=== PATIENT | female | born 1980 | race Caucasian/White ===

== ENCOUNTER → 2018-05-09 13:39 | Outpatient (REF) | payer SELFPAY | LOC: OM 13:39 | PROVIDERS: PCP Family Medicine; Visit Provider Nurse Practitioner Family | DX: Z02.1 Encounter for pre-employment examination (principal) ==

== ENCOUNTER 2022-05-10 11:07 | Emergency (ER) | payer SELFPAY ==
[2022-05-10 11:13] VITALS: BP 142/86; PULSE 83; RESP 16; TEMP 37.1; O2SAT 99
--- NOTE | 2022-05-10 12:00 | DI.RAD_ITS ---
Exam(s) XR CHEST 2V PA LATERAL EXAM: XR CHEST 2V PA LATERAL CLINICAL HISTORY: Fall, Anterior pain TECHNIQUE: 2D digital imaging was performed of the chest. Two images were obtained. PA and lateral views were obtained. COMPARISON: No exams were available for comparison FINDINGS: MEDIASTINUM: Normal. HEART: Normal. PULMONARY VASCULATURE: Normal. LUNGS: Clear. PLEURAL SPACE: No pleural effusion or pneumothorax. BONE:Within normal limits for the patient's age. OTHER FINDINGS:Normal. IMPRESSION: No acute pulmonary findings. DATA REPOSITORY: RADIATION DOSE DELIVERED:
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
--- NOTE | 2022-05-10 12:38 | DI.RAD_ITS ---
Exam(s) XR ELBOW LT COMPLETE EXAM: XR ELBOW LT COMPLETE CLINICAL HISTORY: Fall, pain and bruising. TECHNIQUE: 2D digital imaging was performed of the left elbow. Three images were obtained. AP, lat eral and oblique views were obtained. COMPARISON: No exams were available for comparison FINDINGS: BONES: No acute fracture is present. No bony destructive lesion is seen. JOINTS: The elbow is normally aligned. No joint effusion is seen. SOFT TISSUE: Soft tissue swelling dorsally. IMPRESSION: No acute fracture or dislocation. DATA REPOSITORY: RADIATION DOSE DELIVERED:
== END 2022-05-10 14:10 | disposition home or self-care (01) ==
PROVIDERS: Emergency Provider Emergency Medicine; PCP Family Medicine
DX: S50.02XA Contusion of left elbow, initial encounter (principal); S40.021A Contusion of right upper arm, initial encounter; F17.210 Nicotine dependence, cigarettes, uncomplicated; V18.4XXA Pedal cycle driver injured in noncollision transport accident in traffic accident, initial encounter; Y93.55 Activity, bike riding
CPT/HCPCS: 99284; 71046; 73080; 99282

== ENCOUNTER 2022-06-01 15:53 | Emergency (ER) | payer SELFPAY ==
[2022-06-01 15:57] VITALS: BP 147/89; PULSE 94; RESP 16; TEMP 36.8; O2SAT 99
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
[2022-06-01] MEDS: Cephalexin 500 MG CAP, 4 CAPS/BTL PO (18:34)
[2022-06-01] MEDS: Collagenase 30 GM TUBE TP (18:34)
[2022-06-01] MEDS: Cephalexin 500 MG CAP PO (18:36)
--- NOTE | 2022-06-01 18:39 | NUR.NOTE ---
Nursing Note: Referral faxed to [facility] for right leg wound/debridement; in 1 week.
== END 2022-06-01 19:06 | disposition home or self-care (01) ==
PROVIDERS: Emergency Provider Physician Assistant; PCP Family Medicine
DX: S81.801A Unspecified open wound, right lower leg, initial encounter (principal); E66.9 Obesity, unspecified; F17.210 Nicotine dependence, cigarettes, uncomplicated; V87.8XXA Person injured in other specified noncollision transport accidents involving motor vehicle (traffic), initial encounter; Y93.55 Activity, bike riding
CPT/HCPCS: 96372; 99284

== ENCOUNTER 2022-06-28 11:34 | Day surgery (SDC) | payer SELFPAY ==
--- NOTE | 2022-06-28 11:34 | PDOC.DSDIS_ITS ---
Discharge Plan Disposition Patient Disposition: HOME Condition: Good Discharge Details Reason For Visit: excisional debridement right leg wound Attending Provider: Zia Guerrier Primary Care Provider: Citlali Hardy Home Meds and New Rx's Prescriptions: New tramadol 50 mg tablet 50 mg PO Q8H PRN (Reason: pain) Qty: 9 0RF Rx Instructions: Take 1 tablet by mouth every 8 hours as needed for severe pain. Continued ibuprofen 800 mg Tablet 800 mg PO PRN PRN acetaminophen 500 mg Tablet 500 mg PO PRN PRN Discharge Instructions Additional Instructions: 1. Resume all of your medications. 3. Okay to use tylenol and ibuprofen over the counter as needed. 2. Use tramadol as needed for severe pain. 4. Leave this bandage in place until tomorrow. 5. Tomorrow, remove the bandage and wash with warm soapy water. Rinse dry. 6. Dressed the wound with saline soaked gauze and a bandage. We are going to try another week of wet-to-dry dressing changes. Please try to do this twice a day. 7. I will call you when I get the results from the microbiology lab (looking for infection), if we need to start some antibiotics. Referrals: Zia Guerrier MD [ [facility] STAFF PHYSICIAN] - (07/05 at 2:30 PM) Activity:: Activity as Tolerated Diet:: As Tolerated Discharge Orders Discharge Orders: Discharge Order (Routine); Ordered 06/28/22 Ordered By: Zia Guerrier DS: Diagnosis Discharge Diagnosis (1) Traumatic open wound of right lower leg: Status: Acute Asessment and Plan: Use wet-to-dry dressing changes at the very least once a day, if not twice a day. I will see you in the office next, and we can reassess how the wound is doing.
[2022-06-28 11:46] VITALS: BP 122/73; PULSE 66; RESP 18; TEMP 36; O2SAT 100
[2022-06-28] MEDS: Lactated Ringers 1,000 ML 80 ML IV (12:04)
--- NOTE | 2022-06-28 12:15 | W.ANESPRE ---
General Info Date of Service Date Performed: 06/28/22 Height: 5 ft 9.5 in Weight: 151.67 kg Body Mass Index (BMI): 48.6 Surgical Procedure: Operation Date: 06/28/22 12:10 Proposed Procedure Side Surgeon p Sharp Debridement of Skin Wound Right Zia Guerrier MD Meds Allergies and Home Medications Allergies Allergy/AdvReac Type Severity Reaction Status Date / Time No Known Allergies Allergy Verified 06/28/22 09:04 Home Medication Medication Instructions Recorded acetaminophen 500 mg tablet 500 mg PO PRN PRN 05/10/22 ibuprofen 800 mg tablet 800 mg PO PRN PRN 05/10/22 Current Visit Medications: Current Medications Generic Name Dose Route Start Last Admin Trade Name Freq PRN Reason Stop Dose Admin Acetaminophen 1,000 mg 06/28/22 06:00 Acetaminophen 500 Mg Tab PO 06/28/22 16:00 PREOP MICHAEL Celecoxib 200 mg 06/28/22 06:00 Celecoxib 200 Mg Cap PO 06/28/22 16:00 PREOP MICHAEL Gabapentin 600 mg 06/28/22 06:00 Gabapentin 300 Mg Cap PO 06/28/22 16:00 PREOP MICHAEL Ringer's Solution 1,000 mls @ 80 mls/hr 06/28/22 06:00 06/28/22 12:04 IV 07/28/22 23:59 80 mls/hr INFUSION MICHAEL Administration Ondansetron HCl 8 mg/ Sodium 54 mls @ 200 mls/hr 06/28/22 11:36 Chloride IVPB Q6H PRN PRN IV Miscellaneous Supplies 1 each 06/28/22 06:00 Iv Access IV 07/28/22 23:59 DIRECTED MICHAEL Morphine Sulfate 2 mg 06/28/22 11:36 Morphine 4 Mg/Ml Syr IVP Q1H PRN PRN Sodium Chloride 0 ml 06/28/22 06:00 Normal Saline Flush 10 Ml Syr IV 07/28/22 23:59 PRN PRN Sodium Chloride 0 ml 06/28/22 06:00 Normal Saline 10 Ml Vial IJ 07/28/22 23:59 DIRECTED PRN Sterile Water 0 ml 06/28/22 06:00 Water,Injection,Sterile 10 Ml Vial IJ 07/28/22 23:59 DIRECTED PRN Tramadol HCl 50 mg 06/28/22 11:36 Tramadol 50 Mg Tab PO Q6H PRN PRN Pain PFSH Active Problems Active Problems: Problem Status Onset Code Traumatic open wound of right lower leg S81.801A Cellulitis of right leg L03.115 Medical History Medical History Obesity Right knee injury 1995, with subsequent Lateral release 2002, Dr. Lawson Surgical History Surgical History History of appendectomy History of right knee surgery Lateral release History of tonsillectomy Hx of cholecystectomy Tobacco Smoking/Tobacco Use Status: Current every day Tobacco Type: cigarettes Smoking packs per day: 0.5 Years smoked: 25 Alcohol Alcohol Intake: current Alcohol intake frequency: a few times a month Substance Use Substance use: Occasionally Substance use type: marijuana Vital Signs and Lab Results Vital Signs Most Recent Vital Signs in EMR: Most Recent Vital Signs Temp Pulse Resp BP Pulse Ox 36.0 C L 66 18 122/73 100 06/28/22 11:46 06/28/22 11:46 06/28/22 11:46 06/28/22 11:46 06/28/22 11:46 Lab Results Blood Type / Crossmatch: No Data to Display Complete Blood Count: No Data to Display Complete Metabolic Panel: No Data to Display Liver Function Panel: No Data to Display Coagulation Panel: No Data to Display Cardiac Panel: No Data to Display Arterial Blood Gas: No Data to Display Venous Blood Gas: No Data to Display Pancreas Panel: No Data to Display Thyroid Panel: No Data to Display Infectious Disease: No Data to Display Blood Cultures: No Data to Display Toxicology Panel: No Data to Display Panel: No Data to Display Anesthesia Assessment and Plan Anesthesia History Personal History: No History of Anesthesia Complications Family History: No Family History of Anesthesia Complications Exercise Tolerance Exercise Tolerance: Metabolic Equivalents>4 Pertinent Negatives Pertinent Negatives: No Symptoms of GERD, No Major Cardiovascular Symptoms or Complaints and No Major Pulmonary Symptoms or Complaints Cardiac & Pulmonary Exam Cardiac Exam: Normal S1/S2 Heart Sounds Pulmonary Exam: Clear Bilateral Breath Sounds Implantable Cardiac Device Does patient have a Pacemaker or an ICD?: No Airway Exam Known Difficult Airway: No Mallampati Class: 2 Mouth Opening: Normal (> 3cm) Thyromental Distance: Greater than 3 cm Neck Range of Motion: Full ROM Neck Circumference: Normal Teeth Condition: Normal Dentition ASA Classification ASA Score: ASA 3 Emergency Case?: No NPO Status NPO Status: NPO Clears >2 hours, Solids >8 hours Status Status: Negative HCG Anesthesia Plan Resuscitation Status: Full Code Anesthesia Technique: General Anesthesia Airway Planned: Natural Airway Monitors Used: Standard Monitors
[2022-06-28 12:16] VITALS: BMI 48.6
[2022-06-28] MEDS: Gabapentin 300 MG CAP 600 MG PO (12:20)
[2022-06-28] MEDS: Hydrogen Peroxide 3% 480 ML BTL (12:54)
[2022-06-28] MEDS: Bupivacaine 0.25% Pres-Free 30 ML VIAL (12:54)
[2022-06-28 13:03] VITALS: BP 128/109; PULSE 78; RESP 18; TEMP 36.5; O2SAT 96
[2022-06-28 13:28] VITALS: BP 133/73; PULSE 67; RESP 18; TEMP 36.5; O2SAT 100
--- NOTE | 2022-06-28 13:35 | W.PM.OP ---
Date of service: 06/28/22 Time of Service: 13:35 Operative Note Operative Note DATE OF PROCEDURE: 06/28/22 PRE-OP DIAGNOSIS: Infected traumatic wound of the right lower extremity POST-OP DIAGNOSIS: same PROCEDURE: Sharp debridement of right lower extremity wound SURGEON: Zia Guerrier ANESTHESIA TYPE: Local By Surgeon and MAC Refer to Anesthesia Record ESTIMATED BLOOD LOSS: 25 COMPLICATIONS: None Patient was transported to: same day Patient's condition: stable Indications: Pat is a 42-year-old woman with a traumatic injury to the right lower extremity around the level of mid calf. She is recently developed foul-smelling discharge from the wound, and some increased tenderness. On exam, there appears to be a superficial soft tissue infection. Procedure Description: After the induction of monitored anesthetic care, I manually debrided the wound using a Betadine scrub brush. This helped mechanically remove some fibrinous debris in the granulation tissue bed. Next, I formally prepped and draped the wound. The original wound size measured 5 and half centimeters by 3 cm x 1 cm. Using fine scissors, sharply debrided the central portion of the wound towards the pulp opposition on the clock face. There is thick fibrinous exudate and superficial soft tissue sloughing. I obtained a specimen for gram stain and culture. I debrided down about half centimeter. Next, using curettes, I debrided the superficial portion of the granulation tissue all around the wound bed. Additionally, I sharply debrided the margin of the skin edge and the wound to help promote epithelialization. Once this was completed, I irrigated the wound with hydrogen peroxide solution. Then, using some saline soaked gauze, I packed the wound with wet-to-dry type fashion. The gauze was dressed with an ABD.
--- NOTE | 2022-06-28 13:51 | W.ANESPOSTOP ---
Postoperative Evaluation Date, Time and Location Date Performed: 06/28/22 Time Performed: 13:51 Patient Location: Day Surgery Unit Vital Signs Most Recent Imported Vital Signs: Most Recent Vital Signs Temp Pulse Resp BP Pulse Ox 36.5 C 67 18 133/73 100 06/28/22 13:28 06/28/22 13:28 06/28/22 13:28 06/28/22 13:28 06/28/22 13:28 Pain Score Most Recent Pain Score: Most Recent Pain Score Pain Level 0 06/28/22 13:28 Assessment Mental Status: Awake (Alert & Oriented to Patient Baseline) Airway and Respiratory Function: Patent airway with normal (patient baseline) respiratory exam Cardiovascular Function: Hemodynamically Stable Hydration Status: Adequately Hydrated Nausea & Vomiting: No Nausea or Vomiting Pain: Pt. Denies Any Pain Peripheral Nerve Block: Patient did not receive a nerve block
== END 2022-06-28 13:50 | disposition home or self-care (01) ==
PROVIDERS: PCP Family Medicine; Visit Provider Surgery
PROC: 0JBN0ZZ Excision of Right Lower Leg Subcutaneous Tissue and Fascia, Open Approach (ICD-10-PCS; CPT 11042; principal; 2022-06-28 12:00)
DX: S81.801A Unspecified open wound, right lower leg, initial encounter (principal); L08.9 Local infection of the skin and subcutaneous tissue, unspecified; X58.XXXA Exposure to other specified factors, initial encounter; F17.210 Nicotine dependence, cigarettes, uncomplicated
CPT/HCPCS: 11042; 81025; 87077; 87070; 87075; 87186; 87205; J2250; J2704; J3010

== ENCOUNTER 2022-11-19 06:57 | Day surgery (SDC) | payer BC, SELFPAY ==
--- NOTE | 2022-11-18 19:54 | PDOC.DSDIS_ITS ---
Date of service: 11/19/22 Time of Service: 08:58 Discharge Plan Disposition Patient Disposition: Home Condition: Good Discharge Details Reason For Visit: Split thickness skin graft Attending Provider: Zia Guerrier Primary Care Provider: None,None Home Meds and New Rx's Prescriptions: New tramadol 50 mg tablet 50 mg PO BID PRNQty: 12 0RF Rx Instructions: Take 1 tablet by mouth up to every 8 hours if needed for severe pain. Continued ibuprofen 800 mg Tablet 800 mg PO PRN PRN acetaminophen 500 mg Tablet 500 mg PO PRN PRN Discharge Instructions Additional Instructions: Pat, we were able to do the split thickness skin graft over your wound without any difficulty. The skin looks very healthy, and hopefully this will take well. You have 2 types of dressings on your leg. Your left leg is called the donor site. In this location, there are some soft Band-Aids (or Mepilex dressings) over top of the yellow piece of Xeroform gauze. Leave these Band-Aids in place for at least 24 hours. If fall off within that time, cover the Xeroform gauze with any other type of soft absorbent dressing. After 24 hours, when you have some time that you can have the wound open to air, remove the outer dressing trying to leave the yellow Xeroform gauze in place. Let this dry out. It will be stained with some blood. That is okay. The goal is to let the Xeroform gauze dry in place like a scab. Over the following days, the edges will slowly start to lift up. As that happens, use a pair of scissors to trim the Xeroform smaller and smaller until it falls off. During this time, you can take showers, and it is okay for it to get wet. Again, treated just like a simple scab. On your right leg, or the recipient site, is 1 of those negative pressure dressings that we used before. It is very important that this holds a vacuum over the next several days. I plan to remove this in the office. If for some reason the dressing loses suction before your office visit, please let me know right away. I ordered a prescription for some tramadol to help in case that you have severe pain. Basic Tylenol and ibuprofen should be used [id number] in the meantime to help keep you comfortable. Referrals: Zia Guerrier MD [ [facility] STAFF PHYSICIAN] - (Follow-up appointment is already scheduled for November 24) Activity:: Activity as Tolerated Remove Dressings/Wound Care:: Do Not Remove Shower/Bathe:: 24 hours Diet:: As Tolerated Discharge Orders Discharge Orders: Discharge Order (Routine); Ordered 11/18/22 Ordered By: Zia Guerrier DS: Diagnosis Discharge Diagnosis (1) History of open leg wound: Status: Acute Asessment and Plan: Follow-up in the office November 24 for harper removal
--- NOTE | 2022-11-18 19:55 | W.PM.OP ---
Date of service: 11/19/22 Time of Service: 09:10 Operative Note Operative Note DATE OF PROCEDURE: 11/19/22 PRE-OP DIAGNOSIS: Chronic right lower extremity wound POST-OP DIAGNOSIS: same PROCEDURE: Split thickness skin graft left thigh to right zuñiga SURGEON: Zia Guerrier PORTABLE MACHINE CUTTER: Lakeisha Henry ANESTHESIA TYPE: Local By Surgeon and MAC Refer to Anesthesia Record ESTIMATED BLOOD LOSS: 25 PATHOLOGY: none sent COMPLICATIONS: None Patient was transported to: PACU Patient's condition: stable Indications: Pat is a 43-year-old woman with a traumatic injury to the right lower extremity. Despite several efforts to manage this with topical dressings, it remained an open granulation bed, with minimal epithelialization towards the middle. Procedure Description: After initiation of monitored anesthetic care, we prepped and draped both lower extremities in the usual fashion. The wound on the right lower extremity measured 5 cm x 6 cm in its largest dimensions. It is flush to the surrounding skin level. There is healthy granulation tissue, with no signs of infection. Next, I turned my attention to the left thigh. I established a generous field block using local anesthetic. Then, using mineral oil to lubricate the skin, I harvested a split-thickness skin graft at 0.018 in of depth on the dermatome. I meshed this 1-1, and transferred over to the right lower extremity wound. The donor piece was hydrated with saline. The gauze soaked with local anesthetic and epinephrine was used to dress the donor site temporarily. The donor was laid in the appropriate orientation on to the wound bed. Chromic stitches were used to fix it to the skin edge. Excess donor was trimmed, and this wound was then covered with Adaptic gauze. Next, I turned my attention back to the donor site. I removed the anesthetic soaked gauze, and gently irrigated the wound bed. It was clean and hemostatic. Xeroform was trimmed to fit, and Mepilex dressings were used to affix this in place. Finally, I turned my attention back to the right lower extremity. A harper negative pressure wound dressing management system was used over top of the Adaptic gauze to minimize shearing forces across the skin graft. The patient was allowed awaken from her anesthetic, and transferred to the recovery unit.
[2022-11-19] VITALS (8 sets, daily range): BP systolic 80–135; BP diastolic 43–84; PULSE 60–81; RESP 12–26; TEMP 36–36.4; O2SAT 95–100; BMI 48.7
--- NOTE | 2022-11-19 07:25 | W.ANESPRE ---
General Info Date of Service Date Performed: 11/19/22 Height: 5 ft 9.5 in Weight: 151.9 kg Body Mass Index (BMI): 48.7 Surgical Procedure: Operation Date: 11/19/22 07:55 Proposed Procedure Side Surgeon p Split Thickness Skin Graft Lower Extremity Right Zia Guerrier MD Actual Procedure Side Surgeon p Split Thickness Skin Graft Lower Extremity Right Zia Guerrier MD Pre-Op Diagnosis Post-Op Diagnosis Right lower extremity wound Meds Allergies and Home Medications Allergies Allergy/AdvReac Type Severity Reaction Status Date / Time No Known Allergies Allergy Verified 11/19/22 06:31 Home Medication Medication Instructions Recorded acetaminophen 500 mg tablet 500 mg PO PRN PRN 05/10/22 ibuprofen 800 mg tablet 800 mg PO PRN PRN 05/10/22 Current Visit Medications: Current Medications Generic Name Dose Route Start Last Admin Trade Name Freq PRN Reason Stop Dose Admin Gabapentin 600 mg 11/19/22 06:00 Gabapentin 300 Mg Cap PO 11/19/22 23:59 PREOP MICHAEL Ringer's Solution 1,000 mls @ 80 mls/hr 11/19/22 06:00 IV 11/19/22 23:59 INFUSION MICHAEL IV Miscellaneous Supplies 1 each 11/19/22 06:00 Iv Access IV 11/19/22 23:59 DIRECTED MICHAEL Morphine Sulfate 2 mg 11/18/22 19:57 Morphine 4 Mg/Ml Syr IVP Q1H PRN PRN Sodium Chloride 0 ml 11/19/22 06:00 Normal Saline Flush 10 Ml Syr IV 11/19/22 23:59 PRN PRN Sodium Chloride 0 ml 11/19/22 06:00 Normal Saline 10 Ml Vial IJ 11/19/22 23:59 DIRECTED PRN Sterile Water 0 ml 11/19/22 06:00 Water,Injection,Sterile 10 Ml Vial IJ 11/19/22 23:59 DIRECTED PRN Tramadol HCl 100 mg 11/18/22 19:57 Tramadol 50 Mg Tab PO Q6H PRN PRN Pain PFSH Active Problems Active Problems: Problem Status Onset Code History of open leg wound Z87.828 Injury of lower leg, right S89.91XA Medical History Medical History Obesity Right knee injury 1995, with subsequent Lateral release 2002, Dr. Lawson Surgical History Surgical History History of appendectomy History of right knee surgery Lateral release History of tonsillectomy Hx of cholecystectomy S/P excisional debridement (~06/28/22) lower R leg Tobacco Smoking/Tobacco Use Status: Current every day Tobacco Type: cigarettes Smoking packs per day: 0.5 Years smoked: 25 Alcohol Alcohol Intake: current Alcohol intake frequency: a few times a month Substance Use Substance use: Occasionally Substance use type: marijuana Vital Signs and Lab Results Vital Signs Most Recent Vital Signs in EMR: Most Recent Vital Signs Temp Pulse Resp BP Pulse Ox 36.4 C L 81 18 135/84 100 11/19/22 07:00 11/19/22 07:00 11/19/22 07:00 11/19/22 07:00 11/19/22 07:00 Point of Care Results Point of Care Results: POC- Test(urine) Negative 11/19/22 07:15 Lab Results Blood Type / Crossmatch: No Data to Display Complete Blood Count: No Data to Display Complete Metabolic Panel: No Data to Display Liver Function Panel: No Data to Display Coagulation Panel: No Data to Display Cardiac Panel: No Data to Display Arterial Blood Gas: No Data to Display Venous Blood Gas: No Data to Display Pancreas Panel: No Data to Display Thyroid Panel: No Data to Display Infectious Disease: No Data to Display Blood Cultures: No Data to Display Toxicology Panel: No Data to Display Panel: No Data to Display Anesthesia Assessment and Plan Anesthesia History Personal History: No History of Anesthesia Complications Family History: No Family History of Anesthesia Complications Exercise Tolerance Exercise Tolerance: Metabolic Equivalents>4 Pertinent Negatives Pertinent Negatives: No Symptoms of GERD, No Major Cardiovascular Symptoms or Complaints, No Major Pulmonary Symptoms or Complaints and No History of CVA/TIA Cardiac & Pulmonary Exam Cardiac Exam: Normal S1/S2 Heart Sounds Pulmonary Exam: Clear Bilateral Breath Sounds Implantable Cardiac Device Does patient have a Pacemaker or an ICD?: No Airway Exam Known Difficult Airway: No Mallampati Class: 2 Mouth Opening: Normal (> 3cm) Thyromental Distance: Greater than 3 cm Neck Range of Motion: Full ROM Neck Circumference: Normal Teeth Condition: Normal Dentition ASA Classification ASA Score: ASA 3 Emergency Case?: No NPO Status NPO Status: NPO Clears >2 hours, Solids >8 hours Status Status: Negative HCG Anesthesia Plan Resuscitation Status: Full Code Anesthesia Technique: Spinal Anesthesia Airway Planned: Natural Airway Monitors Used: Standard Monitors
[2022-11-19] MEDS: Lactated Ringers 1,000 ML 80 ML IV (07:27)
[2022-11-19] MEDS: Gabapentin 300 MG CAP 600 MG PO (07:44)
[2022-11-19] MEDS: Celecoxib 200 MG CAP PO (07:44)
[2022-11-19] MEDS: Acetaminophen 500 MG TAB 1000 MG PO (07:44)
[2022-11-19] MEDS: Bupivacaine 0.25% Pres-Free W/EPI 30 ML VIAL (08:19)
--- NOTE | 2022-11-19 10:25 | W.ANESPOSTOP ---
Postoperative Evaluation Date, Time and Location Date Performed: 11/19/22 Time Performed: 10:25 Patient Location: Day Surgery Unit Vital Signs Most Recent Imported Vital Signs: Most Recent Vital Signs Temp Pulse Resp BP Pulse Ox 36 C L 61 18 109/58 L 100 11/19/22 09:45 11/19/22 09:45 11/19/22 09:45 11/19/22 09:45 11/19/22 09:45 Pain Score Most Recent Pain Score: Most Recent Pain Score Pain Level 3 11/19/22 09:45 Assessment Mental Status: Awake (Alert & Oriented to Patient Baseline) Airway and Respiratory Function: Patent airway with normal (patient baseline) respiratory exam Cardiovascular Function: Hemodynamically Stable Hydration Status: Adequately Hydrated Nausea & Vomiting: No Nausea or Vomiting Pain: Pain is tolerable per patient Peripheral Nerve Block: Patient did not receive a nerve block
== END 2022-11-19 10:40 | disposition home or self-care (01) ==
PROVIDERS: Visit Provider Surgery
PROC: (CPT 15100; principal; 2022-11-19 07:45)
DX: S89.91XD Unspecified injury of right lower leg, subsequent encounter (principal); F17.210 Nicotine dependence, cigarettes, uncomplicated; X58.XXXA Exposure to other specified factors, initial encounter
CPT/HCPCS: 15100; 81025; J1100; J2250; J2405; J2704; J3010

== ENCOUNTER 2023-04-15 15:41 | Emergency (ER) | payer BC, SELFPAY ==
[2023-04-15 15:52] VITALS: BP 138/86; PULSE 89; RESP 18; TEMP 36.3; O2SAT 99
--- NOTE | 2023-04-15 16:43 | ED.GENADUL_ITS ---
Discharge Plan Disposition Patient Disposition: Home Condition: Stable Discharge Details Clinical Impression: Dental infection Primary Care Provider: None,None ED Provider: Ani Arenas Home Meds and New Rx's Prescriptions: New penicillin V potassium 500 mg tablet 500 mg PO QID 7 Days Qty: 28 0RF Continued ascorbic acid (vitamin C) 500 mg capsule PO ibuprofen 800 mg Tablet 800 mg PO PRN PRN acetaminophen 500 mg Tablet 500 mg PO PRN PRN Discharge Instructions Instructions: Dental Abscess (ED) Additional Instructions: Continue to brush and floss your teeth 2-3 times daily after meals Can use warm moist compress to affected area [id number] acetaminophen and ibuprofen as directed Take antibiotics as prescribed Follow-up outpatient with dentist Referrals: None,None [Primary Care Provider] - (With dentist) Medical Decision Making Patient presents with left lower dental pain no sign of systemic infection no sign of abscess to I&D. Reasonable to start on penicillin and follow-up outpatient with dentist HPI General Mode of arrival: ambulatory . Date/Time Provider Initiated Documentation: 04/15/23 15:49 . Limitations to Documentation: no limitations . Information obtained by: patient . HPI Narrative: Several day history of left lower posterior dental pain trying to establish with [facility]. Is able to eat and drink no fevers no sign of systemic infection Related Data Home Medications Medication Instructions Recorded Confirmed acetaminophen 500 mg tablet 500 mg PO PRN PRN 05/10/22 04/13/23 ibuprofen 800 mg tablet 800 mg PO PRN PRN 05/10/22 04/13/23 ascorbic acid (vitamin C) 500 mg mg PO 12/15/22 04/13/23 capsule penicillin V potassium 500 mg 500 mg PO QID 7 days #28 tabs 04/15/23 tablet Previous Rx's Medication Instructions Recorded penicillin V potassium 500 mg 500 mg PO QID 7 days #28 tabs 04/15/23 tablet Allergies Allergy/AdvReac Type Severity Reaction Status Date / Time No Known Allergies Allergy Verified 04/13/23 07:51 General Stated Complaint: DentalOral JACKIE: 4 Review of Systems All systems reviewed & are unremarkable except as noted in HPI and below PFSH All Active Problems (Updated 04/15/23 @ 16:46 by Ani Arenas, [employer]TER) Dental infection (Acute) Chronic ulcer of calf (Acute) Leg wound, right (Acute) History of open leg wound (Acute) Injury of lower leg, right (Acute) Medical History Obesity Right knee injury 1995, with subsequent Lateral release 2002, Dr. 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 No obvious fluctuant area to I&D no facial cellulitis 2. Fractured tooth Throat: posterior oropharynx normal Cardio Rate: regular rate Course Vital Signs Vital signs: Vital Signs Temperature 36.3 C L 04/15/23 15:52 Pulse 89 04/15/23 15:52 Respiratory Rate 18 04/15/23 15:52 Blood Pressure 138/86 04/15/23 15:52 Pulse Oximetry 99 04/15/23 15:52 Temperature 36.3 C L 04/15/23 15:52 Pulse 89 04/15/23 15:52 Respiratory Rate 18 04/15/23 15:52 Blood Pressure 138/86 04/15/23 15:52 Blood Pressure Position Sitting 04/15/23 15:52 Pulse Oximetry 99 04/15/23 15:52
== END 2023-04-15 17:05 | disposition home or self-care (01) ==
PROVIDERS: Emergency Provider Nurse Practitioner Acute Care
DX: K04.7 Periapical abscess without sinus (principal)
CPT/HCPCS: 99283; 99284

== ENCOUNTER → 2023-09-26 22:19 | Outpatient (CLI) | payer BC, SELFPAY ==
--- NOTE | 2023-09-26 12:48 | DI.RAD_ITS ---
Exam(s) XR ANKLE LT COMPLETE EXAM: XR ANKLE LT COMPLETE CLINICAL HISTORY: evaluate fx, lt ankle sprain, S93.402A TECHNIQUE: 2D digital imaging was performed of the left ankle. Three images were obtained. AP, lat eral and oblique views were obtained. COMPARISON: No exams were available for comparison FINDINGS: BONES: No acute fracture is present. No bony destructive lesion is seen. There is a plantar calcaneal spur. JOINTS:There are marked degenerative changes seen of the tibial talar joint with joint space narrowin g and osteophytes present. There is lateral tilt of the talus with marked narrowing of the medial ti bial talar joint. SOFT TISSUE: Dystrophic calcifications are seen in the soft tissues adjacent to both the medial later al malleoli. There is soft tissue swelling about the ankle particularly medially. IMPRESSION: 1. No definite acute fracture or dislocation. 2. Marked degenerative changes seen at the left ankle. 3. Soft tissue swelling of the ankle, particularly medially. DATA REPOSITORY: RADIATION DOSE DELIVERED:
== END ==
PROVIDERS: Visit Provider Nurse Practitioner Family
DX: R22.32 Localized swelling, mass and lump, left upper limb (principal)
CPT/HCPCS: 73610

== ENCOUNTER 2024-08-09 03:12 | Outpatient (CLI) | payer BC, SELFPAY ==
[2024-08-09 14:03] LABS: HCT 40.7 % (36.0-46.0); HGB 13.8 g/dL (11.2-15.7); MCH 30.8 pg (27.0-33.0); MCHC 33.9 % (32.0-36.0); MCV 91 fL (80-95); MPV 8.9 fL (8.0-11.0); Platelet Count 398 10^3/uL (130-400); RBC 4.48 10^6/uL (3.93-5.22); RDW 12.2 % (11.7-14.6); RDW-SD 40.9 fL; WBC 10.61 10^3/uL (4.4-10.8)
[2024-08-09 14:15] LABS: Hemoglobin A1C 5.1 % (<5.7)
[2024-08-09 14:39] LABS: ALT 25 U/L (14-59); AST 16 U/L (15-37); Albumin 3.7 g/dL (3.4-5.0); Alkaline Phosphatase 52 U/L (46-116); Anion Gap 8.1 mmol/L (3-11); BUN 14 mg/dL (7-18); Bilirubin, Total 0.41 mg/dL (0.2-1.0); CO2 28.9 mmol/L (21.0-32.0); CREATININE 0.9 mg/dL (0.55-1.02); Calculated LDL 162 mg/dL (<100); Chloride 105 mmol/L (98-107); Cholesterol 254 mg/dL (<200); Estimated GFR 81.86 (mL/min/1.73m2); Glucose 95 mg/dL (74-106); HDL Cholesterol 55 mg/dL (40-60); Magnesium 2.2 mg/dL (1.8-2.4); Potassium 4.2 mmol/L (3.5-5.1); Sodium 142 mmol/L (136-145); Total Protein 7.5 g/dL (6.4-8.2); Triglyceride 187 mg/dL (<150)
== END 2024-08-09 03:13 | disposition home or self-care (01) ==
LOC: LBO 03:12
PROVIDERS: PCP Nurse Practitioner Family; Visit Provider Nurse Practitioner Family
DX: Z00.00 Encounter for general adult medical examination without abnormal findings (principal); R00.0 Tachycardia, unspecified; N94.6 Dysmenorrhea, unspecified; G25.81 Restless legs syndrome
CPT/HCPCS: 36415; 80053; 80061; 85027; 83036; 83735; 84443

== ENCOUNTER 2024-08-09 14:01 | Outpatient (CLI) | payer BC, SELFPAY | END 2024-08-09 14:02 | disposition home or self-care (01) | PROVIDERS: PCP Nurse Practitioner Family; Visit Provider Nurse Practitioner Family | DX: R00.2 Palpitations (principal) | CPT/HCPCS: 93246 ==

== ENCOUNTER 2024-08-30 08:41 | Outpatient (CLI) | payer BC, SELFPAY ==
--- NOTE | 2024-08-30 09:10 | W.CARDEVENT ---
Date of service: 08/30/24 Time of Service: 09:10 Cardiac Event Recorder Referring Provider:: Eugenia Kaufman Indications:: Palpitations Cardiac Event Note: This is a cardiac event monitor. Patient was monitored for 10 days and 2 hours. Rhythm throughout was sinus with an average heart rate of 77. Minimum was 48, maximum 167. There were very rare isolated atrial and ventricular ectopic beats There was 1 ventricular triplet There was no atrial fibrillation, no high-grade AV block, no pauses greater than 3 seconds Reported symptoms had no correlation to any dysrhythmia
== END 2024-08-30 08:42 | disposition home or self-care (01) ==
LOC: CARDOPNVT 08:41
PROVIDERS: PCP Nurse Practitioner Family; Visit Provider Internal Medicine Cardiovascular Disease
DX: R00.2 Palpitations (principal)

== ENCOUNTER 2024-10-17 16:19 | Outpatient (REF) | payer OTHER, SELFPAY ==
--- NOTE | 2024-10-17 16:10 | PAPFT_PTH ---
PATIENT: Pat Del Valle LOC: [facility] U#:[id number] AGE/SX: 44/F ROOM: RE10/17/[address]: Lulu Parnell : 1980 BED: DIS: 10/17/2024 SPEC #: [id number] RECD: 10/17/24 17:59 STATUS: NESHA REIlya #: [id number] MARK: 10/17/24 16:[address]: Lulu Parnell DEPT: [facility] Cytology RECD BY: Génesis Oquendo ENTERED: 10/17/24 17:59 SP TYPE: PAPFT [place] DR: Tameka Marcelo, EDGE GRINDER Tissues: 1 - CX/ENDOCX FOR PAP SMEARS Procedures: PAP THIN PREP/[facility] Screening HPV DNA PROBE Comments: [id number] (HPV 16 & 18/45)
== END 2024-10-17 16:20 | disposition home or self-care (01) ==
LOC: LBN 16:19
PROVIDERS: PCP Nurse Practitioner Family; Visit Provider Obstetrics & Gynecology Gynecology
DX: Z11.51 Encounter for screening for human papillomavirus (HPV) (principal); Z01.419 Encounter for gynecological examination (general) (routine) without abnormal findings
CPT/HCPCS: 88142; 87624

== ENCOUNTER 2025-01-14 14:37 | Outpatient (CLI) | payer OTHER, SELFPAY ==
--- NOTE | 2025-01-14 | DI.RAD_ITS ---
Exam(s) XR CHEST 2V PA LATERAL EXAM: XR CHEST 2V PA LATERAL CLINICAL HISTORY: J18.9 Pneumonia TECHNIQUE: 2D digital imaging was performed. Two views. COMPARISON: CR XR CHEST 2V PA LATERAL from 05/10/2022 FINDINGS: HEART: Normal size. Aorta: Not dilated. PULMONARY VASCULATURE: Normal. MEDIASTINUM: Unremarkable. LUNGS: There are patchy densities noted at both lung bases which appears to lie anteriorly on the lat eral view.. PLEURAL SPACE: No pleural effusion or pneumothorax. BONE:Unremarkable for age. SOFT TISSUES: Unremarkable. IMPRESSION: Bibasilar pneumonia. DATA REPOSITORY: RADIATION DOSE DELIVERED:
== END 2025-01-14 14:57 ==
LOC: DI 14:37
PROVIDERS: PCP Nurse Practitioner Family; Visit Provider Nurse Practitioner Family
DX: J18.9 Pneumonia, unspecified organism (principal)
CPT/HCPCS: 71046